=== PATIENT | female | born 1995 | race Caucasian/White ===

== ENCOUNTER 2018-02-05 13:32 | Emergency (ER) | payer BC ==
[~2018-02-05] VITALS: Ht 165.1 cm; Wt 56.2 kg
--- NOTE | 2018-02-05 14:29 | NUR ---
AAOX4, PT STS SHE WAS SENT BY URGENT CARE FOR HEAD PAIN BEHIND L EYE. NAD NO NEURO DEFICIT. WILL CONT TO MONITOR
[2018-02-05] MEDS ORDERED: KETOROLAC TROMETHAMINE INJ 30 MG/ML VIAL ONE (14:30)
[2018-02-05] MEDS ORDERED: KETOROLAC TROMETHAMINE INJ 30 MG/ML VIAL IV ONE (14:30)
[2018-02-05] MEDS ORDERED: IV NS 0.9% 1,000 ML BAG IV ONE (14:30)
[2018-02-05] MEDS ORDERED: SUMATRIPTAN SUCCINATE 6 MG/0.5 ML VIAL SQ ONE ×2 (14:30)
[2018-02-05 14:48] LABS: WHITE BLOOD COUNT (AUTO) 5.7 K/uL (4.3-11.0)
[2018-02-05 14:49] LABS: BASOPHILS % (AUTO) 0.6 % (0.0-2.0); EOSINOPHILS % (AUTO) 2.6 % (0.0-6.0); HEMATOCRIT 43 % (33-45); HEMOGLOBIN 14.9 g/dL (11.5-14.8); LYMPHOCYTES % (AUTO) 32.1 % (20.0-44.0); MEAN CORPUSCULAR HEMOGLOBIN 31 PG (26.0-33.0); MEAN CORPUSCULAR HGB CONC 34 g/dl (31.0-36.0); MEAN CORPUSCULAR VOLUME 89 fL (82-100); MONOCYTES % (AUTO) 9.5 % (2.0-12.0); NEUTROPHILS % (AUTO) 55.2 % (43.0-81.0); PLATELET COUNT (AUTO) 211 /CMM (150-450); RDW COEFFICIENT OF VARIATION 12.9 (11.5-15.0); RED BLOOD CELL COUNT(AUTO) 4.87 MIL/uL (4.0-5.2)
[2018-02-05 14:50] LABS: LYMPHOCYTES # (AUTO) 1.8 /CMM (0.8-4.8); MONOCYTES # (AUTO) 0.5 /CMM (0.1-1.30); NEUTROPHILS # (AUTO) 3.2 /CMM (1.8-8.9)
[2018-02-05 14:51] LABS: CREATININE 0.8 mg/dL (0.6-1.3); POTASSIUM 3.9 mmol/L (3.5-5.1)
--- NOTE | 2018-02-05 15:45 | NUR ---
IV removed. Catheter intact and site benign. Pressure and 4x4 applied to site. No bleeding noted.Patient discharged to home in stable condition. Written and verbal after care instructions given. Patient verbalizes understanding of instruction.
[2018-02-05 16:00] VITALS: BP 115/68
== END 2018-02-05 15:45 | disposition home or self-care (01) ==
LOC: ER 13:41
DX: G43.909 Migraine, unspecified, not intractable, without status migrainosus (principal)
CPT/HCPCS: 36415; 80048; 85025; 96372; 96374; 99284; A4606; J1885; J3030; J7030; Z7610

== ENCOUNTER 2018-02-21 22:52 | Emergency (ER) | payer BC ==
[~2018-02-21] VITALS: Ht 167.6 cm; Wt 57.6 kg
--- NOTE | 2018-02-21 23:15 | NUR ---
pt bibself from home c/o sharp chest pain & discomfort, nonradiating. friend at bedside. no s/s of acute distress or sob noted. pt is a/ox4, verbal, able to make needs known. VS stable. being seen by md at bedside. will continue to monitor pt and carry out md orders.
--- NOTE | 2018-02-22 00:24 | NUR ---
cxr being done at bedside
--- NOTE | 2018-02-22 00:26 | NUR ---
IV ACCESS STARTED ON RAC #20G. LABS DRAWN
[2018-02-22 00:30] LABS: BASOPHILS % (AUTO) 0.3 % (0.0-2.0); EOSINOPHILS % (AUTO) 1.6 % (0.0-6.0); HEMATOCRIT 46 % (33-45); HEMOGLOBIN 15.2 g/dL (11.5-14.8); LYMPHOCYTES # (AUTO) 2.3 /CMM (0.8-4.8); LYMPHOCYTES % (AUTO) 26.8 % (20.0-44.0); MEAN CORPUSCULAR HEMOGLOBIN 30 PG (26.0-33.0); MEAN CORPUSCULAR HGB CONC 33 g/dl (31.0-36.0); MEAN CORPUSCULAR VOLUME 91 fL (82-100); MONOCYTES # (AUTO) 0.4 /CMM (0.1-1.30); MONOCYTES % (AUTO) 4.8 % (2.0-12.0); NEUTROPHILS # (AUTO) 5.7 /CMM (1.8-8.9); NEUTROPHILS % (AUTO) 66.5 % (43.0-81.0); PLATELET COUNT (AUTO) 265 /CMM (150-450); RDW COEFFICIENT OF VARIATION 12.5 (11.5-15.0); RED BLOOD CELL COUNT(AUTO) 5.07 MIL/uL (4.0-5.2); WHITE BLOOD COUNT (AUTO) 8.5 K/uL (4.3-11.0)
[2018-02-22 00:48] LABS: CALCIUM, SERUM 9.3 mg/dL (8.5-10.1); CARBON DIOXIDE 28 mmol/L (21-32); CHLORIDE 102 mmol/L (98-107); CREATININE 0.7 mg/dL (0.6-1.3); GLUCOSE 90 mg/dL (74-106); POTASSIUM 3.7 mmol/L (3.5-5.1); SODIUM SERUM 140 mmol/L (136-145); UREA NITROGEN, BLOOD 9 mg/dL (7-18)
[2018-02-22 00:53] LABS: TROPONIN I < 0.017 ng/mL (0.00-0.056)
[2018-02-22 01:00] LABS: ALANINE AMINOTRANSFERASE 18 U/L (12-78); ALBUMIN 4.7 g/dL (3.4-5.0); ALKALINE PHOSPHATASE 95 U/L (46-116); ASPARTATE AMINOTRANSFERASE 21 U/L (15-37); BILIRUBIN,DIRECT 0.1 mg/dL (0.0-0.2); BILIRUBIN,TOTAL 0.6 mg/dL (0.2-1.0); TOTAL PROTEIN, SERUM 8.7 g/dL (6.4-8.2)
[2018-02-22 01:08] LABS: D-DIMER 0.19 mg/L(FEU (0.17-0.50); INR 1.01 (0.87-1.13)
--- NOTE | 2018-02-22 01:35 | NUR ---
Patient discharged to home in stable condition. Written and verbal after care instructions given. Patient verbalizes understanding of instruction. Patient left on foot walking with steady gait. No s/s of acute distress or sob noted. VS stable. Patient's friend at bedside will take pt back home.
[2018-02-22 03:10] VITALS: BP 116/80
== END 2018-02-22 01:35 | disposition home or self-care (01) ==
LOC: ER 22:54
DX: R07.89 Other chest pain (principal); J45.909 Unspecified asthma, uncomplicated; F17.200 Nicotine dependence, unspecified, uncomplicated
CPT/HCPCS: 36415; 71045-TC; 80048-TC; 80076-TC; 84484-TC; 84703-TC; 85025-TC; 85378-TC; 85730-TC; A4606; Z7610